=== PATIENT | female | born 1995 | race Caucasian/White ===

== ENCOUNTER 2019-07-27 09:15 | Emergency (ER) | payer OTHER ==
[~2019-07-27] VITALS: Ht 157.5 cm; Wt 58.0 kg
[2019-07-27 09:26] VITALS: BP 124/80
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
[2019-07-27] MEDS ORDERED: KETOROLAC 30 MG/1 ML ONE (09:50)
[2019-07-27] MEDS ORDERED: METHOCARBAMOL 500 MG TABLET ONE (09:50)
[2019-07-27] MEDS ORDERED: BIRTH CONTROL (09:55)
--- NOTE | 2019-07-27 09:58 | NUR ---
RN ADMINISTERED MEDICATION PER EMAR. AWAITING CT SCANS.
[2019-07-27] MEDS ORDERED: METHOCARBAMOL 750 MG TABLET PO ONE (10:00)
[2019-07-27] MEDS ORDERED: KETOROLAC 30 MG/1 ML IM ONE (10:00)
--- NOTE | 2019-07-27 10:07 | NUR ---
PT TRANSPORTED TO CT SCAN VIA [facility].
== END 2019-07-27 11:00 | disposition home or self-care (01) ==
LOC: ED 09:54
DX: S16.1XXA Strain of muscle, fascia and tendon at neck level, initial encounter (principal); S09.90XA Unspecified injury of head, initial encounter; V49.49XA Driver injured in collision with other motor vehicles in traffic accident, initial encounter; Y93.89 Activity, other specified; Y92.488 Other paved roadways as the place of occurrence of the external cause; Y99.8 Other external cause status
CPT/HCPCS: 70450; 72125; 99285; J1885